=== PATIENT | female | born 1965 | race Caucasian/White ===

== ENCOUNTER 2021-12-30 09:53 | Emergency (ER) | payer OTHER, MEDICAID, SELFPAY ==
[2021-12-30] VITALS (15 sets, daily range): BP systolic 93–126; BP diastolic 74–96; PULSE 79–94; RESP 14–24; O2SAT 84–100
--- NOTE | ~2021-12-30 | XR_ITS ---
XR chest 2V DATE: 12/30/2021 10:14 INDICATION: Chest tightness TECHNIQUE: PA and lateral views COMPARISON: None FINDINGS: Normal heart size. No hilar or mediastinal enlargement. No pulmonary infiltrate or consolid ation, pleural effusion or pulmonary vascular congestion or pneumothorax. Status post cholecystectomy. Included skeletal structures are unremarkable. IMPRESSION: No active cardiopulmonary disease Reviewed, dictated and finalized at location A.
--- NOTE | ~2021-12-30 | CT_ITS ---
EXAMINATION: CTA chest PE protocol DATE: 12/30/2021 10:53 INDICATION: Shortness of breath. Chest pain. TECHNIQUE: Computed tomography angiography (CTA) of the chest was performed with 100 mL Omnipaque-350 intravenous contrast timed to evaluate the pulmonary arteries. Coronal maximum intensity projection 3D-reconstructions were created by the technologist. Automated exposure control and iterative reconst ruction technique were employed. The dose-length product was 334.48 mGy-cm. COMPARISON: Chest 2 views 12/30/2021 FINDINGS: There is mild emphysema. There is mild scarring at the lung apices. There is mild atelectas is bilaterally. No pleural effusion. The heart size is normal. No pericardial effusion. There are esperanza nges of cholecystectomy. There are small pulmonary emboli in right lower lobe. There is mild thoracic spondylosis. IMPRESSION: 1. Small pulmonary emboli in right lower lobe. 2. Mild emphysema. Reviewed, dictated and finalized at location B.
--- NOTE | 2021-12-30 09:56 | ECG_ITS ---
Measurements Intervals [place] Rate: 88 P: 61 [place]: 181 QRS: -5 QRSD: 97 T: 47 QT: 369 QTc: 448 Interpretive Statements SINUS RHYTHM CANNOT RULE OUT INFERIOR MYOCARDIAL INFARCTION , PROBABLY OLD [35 ms Q WAVE IN II/aVF] ABNORMAL ECG NO PREVIOUS ECG AVAILABLE FOR COMPARISON Electronically Signed On 12-30-2021 10:34:28 CDT by Prabhjot Luis M.D.
[2021-12-30 10:14] LABS: Basophils Absolute Auto 0.1 K/mm3 (0.0-0.1); Basophils Percent Auto 0.7 % (0.2-1.2); Eosinophils Absolute Auto 0.2 K/mm3 (0-0.3); Eosinophils Percent Auto 2.2 % (0-4.4); Hematocrit 40.4 % (37.0-47.0); Hemoglobin 13.3 g/dL (12.0-15.0); Immature Granulocyte Absolute 0.05 K/mm3 (0.00-0.031); Immature Granulocyte Percent A 0.5 % (0-0.5); Lymphocytes Absolute Auto 2.97 K/mm3 (0.9-3.2); Mean Corpuscular HGB Conc 32.9 g/dl (32-36); Mean Corpuscular Hemoglobin 30.4 pg (26-34); Mean Corpuscular Volume 92.4 fl (80-100); Mean Platelet Volume 9.8 fl (7.4-10.4); Monocytes Absolute Auto 0.9 K/mm3 (0.1-0.6); Monocytes Percent Auto 9.1 % (2.6-8.5); Neutrophils Percent Auto 58.5 % (45.5-73.1); Platelet Count Result 361 k/mm3 (150-375); Red Blood Count 4.37 M/mm3 (4.2-5.4); Red Cell Distribution Width 13.4 % (11.5-14.5); White Blood Count 10.3 K/mm3 (4.5-10.0)
[2021-12-30] MEDS: ASPIRIN 81 MG CHEWABLE TABLET 324 MG PO (10:16)
--- NOTE | 2021-12-30 10:16 | ED.CHESTPAIN ---
HPI - Chest Pain General Chief Complaint: Chest Pain Stated Complaint: LLE pain, chest pain, cough Time Seen by Provider: 12/30/21 10:02 Source: patient History of Present Illness HPI narrative: Patient presents with chest pain. Pain originally started around 730 this morning when not improved so she came to the ER for evaluation. Her pain is sharp, constant, worse with deep inspiration, no radiation. It is associated with shortness of breath denies any diaphoresis nausea or vomiting. Reports prior history of cardiac stent denies any recent hospitalizations or surgeries denies prior history of blood clots. Patient reports she struck her left ankle on a nail last night with some redness and edema to the area she was unsure if that is related to chest pain. Related Data Allergies Allergy/AdvReac Type Severity Reaction Status Date / Time Sulfa (Sulfonamide Allergy Nausea and Verified 12/30/21 10:06 Antibiotics) Vomiting Review of Systems Review of Systems: CONSTITUTIONAL: Denies fever, chills, or sweats. EYES: Denies visual changes, redness, or discharge. ENT: Denies rhinorrhea, congestion, sore throat, or otalgia. CARDIOVASCULAR: Denies palpitations, or edema. RESPIRATORY: Reports cough and shortness of breath GASTROINTESTINAL: Denies abdominal pain, nausea, vomiting, or diarrhea. GENITOURINARY: Denies dysuria or hematuria. SKIN: Denies rash or itching. MUSCULOSKELETAL: Denies back pain, or myalgia. NEUROLOGIC: Denies headache, numbness, dizziness, or weakness. PSYCHIATRIC: Denies anxiety or depression. All systems reviewed & are unremarkable except as noted in HPI and below Exam Narrative: GENERAL: Well-appearing, well-nourished, and in no acute distress. HEAD: Normocephalic, atraumatic. EYES: PERRLA and EOMI. ENT: Nares clear, no rhinorrhea or epistaxis. Mucous membranes moist. NECK: Supple. No masses. No JVD CHEST: Clear to auscultation. No respiratory distress. No wheezes rales or rhonchi HEART: Regular rate and rhythm. No murmur heard. Normal peripheral pulses. ABDOMEN: Soft, nontender, nondistended, normal active bowel sounds. EXTREMITIES: Normal range of motion. Scant symmetric edema in the bilateral lower extremities mild erythema noted to the posterior ankle no open or draining wounds no focal tenderness or warmth SKIN: Warm, dry, no rash. NEURO: No focal deficits. Alert and oriented x3. PSYCH: Normal mood and affect. Course Reevaluation(s) Reevaluation #1: Patient resting comfortably results reviewed with patient. Patient is comfortable with the outpatient plan. Patient is low risk by PESI is a candidate for outpatient anticoagulation. Discussed with her primary care doctor who will assist with close outpatient follow-up. Date: 12/30/21 Time: 11:37 Vital Signs Vital signs: Vital Signs Pulse Rate 88 12/30/21 09:58 Respiratory Rate 16 12/30/21 09:58 Blood Pressure 126/96 H 12/30/21 09:58 Pulse Oximetry 100 12/30/21 09:58 Oxygen Delivery Room Air 12/30/21 09:58 Pulse Rate 82 12/30/21 11:46 Respiratory Rate 20 12/30/21 11:46 Blood Pressure 110/74 12/30/21 11:05 Pulse Oximetry 100 12/30/21 11:46 Oxygen Delivery Room Air 12/30/21 09:58 MDM - Chest Pain MDM Narrative Medical decision making narrative: H&P as above, vss, pt looks clinically well, exam with clear lungs, labs with elevated dimer, img CT showing PEs, additional labs/img considered, symptomatic relief available as needed, on reevaluation pt continues to looks clinically well. PEs. Patient is low risk by PESI and is appropriate for outpatient anticoagulation. Patient is comfortable with the outpatient plan. I reached out to her primary care doctor who will assist with close outpatient follow-up. dns heart strain, pneumothorax, infarct, dissection plan to tx/monitor as op w/ pcm f/u findings/plan discussed with pt, pt agree/comfortable with plan, return precautions given Lab Data Result diagrams:
[2021-12-30 10:19] LABS: Alanine Aminotransferase 28 U/L (6-35); Albumin Level 4.2 g/dL (3.5-5.1); Alkaline Phosphatase 96 U/L (38-126); Anion Gap 7 mmol/L (8-16); Aspartate Amino Transferase 30 U/L (14-36); Bilirubin,Total 0.2 mg/dL (0.2-1.3); Blood Urea Nitrogen 21 mg/dL (7-17); Calcium 9.3 mg/dL (8.4-10.2); Carbon Dioxide 30 mmol/L (22-30); Chloride 103 mmol/L (98-107); Estimated CRCL calculation 81 ml/min; Estimated Glomerular Filt Rate > 60; Glucose 97 mg/dL (65-110); Lipase 182 U/L (23-300); Sodium 140 mmol/L (137-145)
[2021-12-30 10:31] LABS: Troponin I < 0.012 ng/mL (0.000-0.034)
[2021-12-30 10:34] LABS: INR 0.9; Prothrombin Time 12.1 Seconds (11.1-14.7)
== END 2021-12-30 12:40 | disposition home or self-care (01) ==
PROVIDERS: Emergency Provider Emergency Medicine; PCP Family Medicine
DX: I26.94 Multiple subsegmental thrombotic pulmonary emboli without acute cor pulmonale (principal); R07.9 Chest pain, unspecified
CPT/HCPCS: 36415; 71046; 71275; 80053; 83690; 84484; 85025; 85380; 85610; 85730; 93005; 99284; A9270; Q9967

== ENCOUNTER 2022-03-17 11:56 | Emergency (ER) | payer OTHER, SELFPAY ==
--- NOTE | ~2022-03-17 | XR_ITS ---
EXAMINATION: XR chest 2V DATE: 03/17/2022 12:29 INDICATION: Chest pain and shortness of breath TECHNIQUE: PA and lateral views of the chest were obtained. COMPARISON: Chest radiograph and CT dated 12/30/2021 FINDINGS: The lungs remain clear with no focal airspace opacities, pulmonary edema, pleural effusion or pneumot horax. The cardiomediastinal silhouette is normal. Coronary artery stenting. I'll to moderate thoraci c spondylosis. Cholecystectomy clips in the upper abdomen. IMPRESSION: 1. No acute cardiopulmonary disease. Reviewed, dictated and finalized at location A.
--- NOTE | 2022-03-17 12:00 | ECG_ITS ---
Measurements Intervals [place] Rate: 71 P: 52 [place]: 197 QRS: 25 QRSD: 88 T: 52 QT: 391 QTc: 427 Interpretive Statements SINUS RHYTHM COMPARED TO ECG 12/30/2021 10:03:30 NO SIGNIFICANT CHANGES Electronically Signed On 03-17-2022 19:59:47 CDT by Lisa Carmichael M.D.
[2022-03-17 12:10] VITALS: BP 124/71; PULSE 73; RESP 16; TEMP 36.5; O2SAT 99
[2022-03-17 12:14] LABS: Basophils Absolute Auto 0.1 K/mm3 (0.0-0.1); Basophils Percent Auto 0.7 % (0.2-1.2); Eosinophils Absolute Auto 0.2 K/mm3 (0-0.3); Eosinophils Percent Auto 1.9 % (0-4.4); Hematocrit 38.6 % (37.0-47.0); Hemoglobin 12.6 g/dL (12.0-15.0); Immature Granulocyte Absolute 0.04 K/mm3 (0.00-0.031); Immature Granulocyte Percent A 0.4 % (0-0.5); Lymphocytes Absolute Auto 3.59 K/mm3 (0.9-3.2); Lymphocytes Percent Auto 35.1 % (18.3-44.2); Mean Corpuscular HGB Conc 32.6 g/dl (32-36); Mean Corpuscular Hemoglobin 29.9 pg (26-34); Mean Corpuscular Volume 91.7 fl (80-100); Mean Platelet Volume 10.1 fl (7.4-10.4); Monocytes Absolute Auto 0.9 K/mm3 (0.1-0.6); Monocytes Percent Auto 9.1 % (2.6-8.5); Neutrophils Absolute Auto 5.4 K/mm3 (1.3-6.7); Neutrophils Percent Auto 52.8 % (45.5-73.1); Platelet Count Result 354 k/mm3 (150-375); Red Blood Count 4.21 M/mm3 (4.2-5.4); Red Cell Distribution Width 13.5 % (11.5-14.5); White Blood Count 10.2 K/mm3 (4.5-10.0)
[2022-03-17 12:25] LABS: Alanine Aminotransferase 45 U/L (6-35); Albumin Level 4.3 g/dL (3.5-5.1); Alkaline Phosphatase 94 U/L (38-126); Anion Gap 1 mmol/L (8-16); Aspartate Amino Transferase 40 U/L (14-36); Bilirubin,Total 0.3 mg/dL (0.2-1.3); Blood Urea Nitrogen 17 mg/dL (7-17); Calcium 9.2 mg/dL (8.4-10.2); Carbon Dioxide 30 mmol/L (22-30); Chloride 101 mmol/L (98-107); Estimated CRCL calculation 77 ml/min; Estimated Glomerular Filt Rate > 60; Glucose 98 mg/dL (65-110); Lipase 224 U/L (23-300); Sodium 132 mmol/L (137-145)
[2022-03-17 12:31] LABS: INR 1.5; Partial Thromboplastin Time 44.9 SECONDS (22.3-36.8); Prothrombin Time 17.1 Seconds (11.1-14.7)
[2022-03-17 12:35] LABS: Troponin I < 0.012 ng/mL (0.000-0.034)
== END 2022-03-17 15:00 | disposition left against medical advice (07) ==
LOC: ANHED 15:10
PROVIDERS: Emergency Provider Emergency Medicine
DX: R07.9 Chest pain, unspecified (principal)
CPT/HCPCS: 36415; 71046; 80053; 83690; 84484; 85025; 85610; 85730; 93005; 99199

== ENCOUNTER 2022-11-08 01:07 | Day surgery (SDC) | payer BC, SELFPAY ==
[2022-11-01 10:22] VITALS: BMI 26.6
--- NOTE | 2022-11-06 10:40 | PM.HPGS ---
History of Present Illness History of Present Illness Consent: Risks, benefits, and alternatives have been discussed and questions answered. Patient agrees to proceed with procedure. Chief complaint: neoplasm screening Narrative: Galileo Oakes is a 57 year old female who was referred for colon cancer screening. this is her 1st colonoscopy. Review of Systems Review of Systems: All systems reviewed & are unremarkable except as noted in HPI and below PMFSH Past Medical History Medical History CAD (coronary artery disease) DVT (deep venous thrombosis) History of pulmonary embolism Hyperlipidemia Hypertension Surgical History Surgical History History of coronary artery stent placement x1, 07/2020 History of tubal ligation Social History Social History Years smoked: 30 Smoking status: Current every day smoker Tobacco type: cigarettes Alcohol intake: current Substance use: never Substance use type: does not use Living arrangements: with family Spiritual care concerns: No Meds Home Medications and Allergies Home Medications Medication Instructions Recorded Confirmed Type atorvastatin 40 mg tablet 40 mg PO DAILY 03/17/22 11/08/22 History furosemide 20 mg tablet 20 mg PO DAILY 03/17/22 11/08/22 History metoprolol tartrate 25 mg tablet 12.5 mg PO BID 03/17/22 11/08/22 History aspirin 81 mg tablet,delayed 81 mg PO DAILY 11/01/22 11/08/22 History release rivaroxaban 20 mg tablet (Xarelto) 20 mg PO DAILY 11/01/22 11/08/22 History Allergies Allergy/AdvReac Type Severity Reaction Status Date / Time Sulfa (Sulfonamide Allergy Severe Nausea and Verified 11/08/22 08:24 Antibiotics) Vomiting Exam Const: General: alert Orientation/consciousness: patient oriented x3 Resp: Auscultation: clear to auscultation bilaterally Cardio: Rhythm: regular rhythm GI: GI Palp: Yes Soft to palpation and No Tenderness to palpation present (GI) Neuro: General: patient oriented x3 Assessment and Plan Assessment and plan (1) Colon cancer screening: Code(s): Z12.11 - Encounter for screening for malignant neoplasm of colon Status: Acute Assessment and Plan: Colonoscopy with possible biopsy or polypectomy or cautery or injection of substances.
--- NOTE | 2022-11-08 07:13 | P.PNAN_ITS ---
Anes - Initial Pre Proc Eval Procedure: Operation Date: 11/08/22 09:45 Proposed Procedures p Screening Colonoscopy - Jacobo Alba MD Date/Time: 11/08/22 07:13 Surgeon: Jacobo Alba MD Pre Op Diagnosis: neoplasm screening Patient Data Age: 57 Gender: F Height: 1.7 m Weight: 77 kg Allergies Allergy/AdvReac Type Severity Reaction Status Date / Time Sulfa (Sulfonamide Allergy Severe Nausea and Verified 11/08/22 08:24 Antibiotics) Vomiting Home Medications Medication Instructions Recorded Confirmed Type atorvastatin 40 mg tablet 40 mg PO DAILY 03/17/22 11/08/22 History furosemide 20 mg tablet 20 mg PO DAILY 03/17/22 11/08/22 History metoprolol tartrate 25 mg tablet 12.5 mg PO BID 03/17/22 11/08/22 History aspirin 81 mg tablet,delayed 81 mg PO DAILY 11/01/22 11/08/22 History release rivaroxaban 20 mg tablet (Xarelto) 20 mg PO DAILY 11/01/22 11/08/22 History Patient hx anesthesia problems: none Family hx anesthesia problems: none Results Review: All pre-operative results and documents have been reviewed as part of the pre- operative evaluation. [facility] Past Medical History Medical History (Updated 11/08/22 @ 07:15 by Guanakito Baxter DO) CAD (coronary artery disease) DVT (deep venous thrombosis) History of pulmonary embolism Hyperlipidemia Hypertension Surgical History Surgical History (Updated 11/08/22 @ 07:15 by Guanakito Baxter DO) History of coronary artery stent placement x1, 07/2020 History of tubal ligation Social History Social History Years smoked: 30 Smoking status: Current every day smoker Tobacco type: cigarettes Alcohol intake: current Substance use: never Substance use type: does not use Living arrangements: with family Spiritual care concerns: No Anes - Eval Final PreProcedure Day of Procedure 11/08/22 07:13 Patient weight: overweight Heart: regular rate and rhythm Lungs: clear to auscultation Airway: Mallampati scale class II Neurological: alert and oriented Last oral intake: >/= 8 hours ASA classification: III Emergent: no Anesthetic plan: proceed Anesthesia type and monitoring: general GIVS and standard monitoring Results Review: All pre-operative results and documents have been reviewed as part of the pre- operative evaluation. Informed Consent: The patient's anesthetic plan and its attendant risks and benefits were discussed with the patient/family/POA. Questions were solicited and answers provided to the satisfaction of the patient/family/POA.
[2022-11-08 08:26] VITALS: BP 134/87; PULSE 87; RESP 16; TEMP 36.1; O2SAT 100
[2022-11-08] MEDS: LACTATED RINGERS 1,000 ML 150 ML IV CONT (08:39)
[2022-11-08 09:53] VITALS: BP 116/79; PULSE 88; RESP 21; O2SAT 100
[2022-11-08 10:03] VITALS: BP 124/88; PULSE 83; RESP 27; O2SAT 100
[2022-11-08 10:13] VITALS: BP 111/73; PULSE 82; RESP 25; O2SAT 100
== END 2022-11-08 10:22 | disposition home or self-care (01) ==
PROVIDERS: PCP Family Medicine; Visit Provider Internal Medicine Gastroenterology
PROC: 0DJD8ZZ Inspection of Lower Intestinal Tract, Via Natural or Artificial Opening Endoscopic (ICD-10-PCS; CPT 45378; principal; 2022-11-08 09:45)
DX: Z12.11 Encounter for screening for malignant neoplasm of colon (principal); D12.2 Benign neoplasm of ascending colon; D12.4 Benign neoplasm of descending colon; K63.5 Polyp of colon; K62.1 Rectal polyp; I10 Essential (primary) hypertension; I25.10 Atherosclerotic heart disease of native coronary artery without angina pectoris; E78.5 Hyperlipidemia, unspecified; Z86.711 Personal history of pulmonary embolism; Z86.718 Personal history of other venous thrombosis and embolism; Z79.01 Long term (current) use of anticoagulants; Z95.5 Presence of coronary angioplasty implant and graft; F17.210 Nicotine dependence, cigarettes, uncomplicated
CPT/HCPCS: 45385; 45380; 88305; J2704; J7120

== ENCOUNTER 2024-10-18 10:42 | Outpatient (CLI) | payer OTHER, SELFPAY ==
--- NOTE | ~2024-10-18 | DEXA_ITS ---
Bone Density Report Name: RACHANA LING Age: 59 Sex: Female Ethnicity: White Date of : 1965 Indication: postmenopausal; screening for osteoporosis; Referring Provider: DWAYNE GRACIA Study: Bone densitometry was performed. Exam Date: October 18, 2024 Accession number: [id number] Bone Density: Region BMD T-score Z-score Classification AP Spine(L1-L4) 1.167 1.1 2.3 Normal Femoral Neck (Left) 1.016 1.5 2.7 Normal Total Hip (Left) 1.147 1.7 2.5 Normal Femoral Neck (Right) 0.982 1.2 2.4 Normal Total Hip (Right) 1.122 1.5 2.3 Normal Total Hip Mean 1.134 1.6 2.4 Normal World Health Organization criteria for BMD impression classify patients as: Normal (T-score at or above -1.0), Osteopenia (T-score between -1.0 and -2.5), or Osteoporosis (T-score at or below -2.5). 10-year Fracture Risk: FRAX not reported because: All T-scores for Spine Total, Hip Total, Femoral Neck at or above -1.0 Clinical Information Provided by Patient: Smokes Patient maximum height was 67 Menopause Age: 55 No regular weight bearing exercise Drinks caffeinated beverages Onset of menses at age 17 Number of children 1 Impression: The patient has normal bone mass. The patient has risk factors, including: smoking. Discussion: LOW RISK OF FRACTURE; BONE DENSITY IS WELL ABOVE THE MINIMUM DESIRABLE LEVEL AND ABOVE AVERAGE FOR AGE AND SEX AT ALL SKELETAL SITES TESTED. This person's bone density is above expected limits for age and sex. This is rarely clinically significant, but should be pursued if there are significant musculoskeletal complaints. The patient should follow a healthful lifestyle (good nutrition with adequate calcium and vitamin D, and appropriate weight-bearing exercise). Follow-Up: Consider repeating this study in 5 years or sooner if there is some new clinical indication. Reported by: NOE on 10/18/2024 11:20:00 AM. Reviewed, dictated and finalized at location [facility]
--- OUTSIDE RECORDS SUMMARY | 2024-10-18 11:30 | XMS_ITS | Clinical Summary ---
Author Organization [facility] Address [address] [place] [address] Phone Care Team Providers Care Core Stripper Name Role Phone Tess Heard MD Primary Care Provider [phone] Allergies Active Allergy Reactions Criticality Noted Date Comments Sulfa Antibiotics Nausea,Vomiting,Othe r (see Comments) 08/24/2022 Stomach cramping Medications furosemide (LASIX) 20 MG Tablet furosemide 20 mg tablet TAKE 1 TABLET BY MOUTH EVERY DAY Active metoprolol tartrate (LOPRESSOR) 25 MG Tablet metoprolol tartrate 25 mg tablet TAKE 1/2 TABLET BY MOUTH TWICE DAILY 0 Active atorvastatin (LIPITOR) 40 MG Tablet atorvastatin 40 mg tablet TAKE 1 TABLET BY MOUTH EVERY DAY 0 Active rivaroxaban (XARELTO) 15 MG Tablet Xarelto 15 mg tablet TAKE 1 TABLET BY MOUTH EVERY DAY Active aspirin EC 81 MG Tablet Delayed Response aspirin 81 mg tablet,delayed release TAKE 1 TABLET BY MOUTH EVERY DAY 0 Active Active Problems No known active problems Family History Medical History Relation Name Comments Diabetes Father Heart Attack Father x5 Hypertension Father Other-comment Father Sepsis Cancer Maternal Grandfather possibl e colon ca Heart Disease Maternal Grandfather Diabetes Mother Leukemia/Lymphoma Mother Colon Cancer Paternal Aunt Diabetes Paternal Grandmother Stroke Paternal Grandmother Other-comment Sister PE Relation Name Status Comments Father Maternal Grandfather Mother Alive Paternal Aunt Paternal Grandmother Sister Social History Tobacco Use Types Packs/Day Years Used Date Smoking Tobacco: Every Day Cigarettes 0.3 44 Smokeless Tobacco: Never Tobacco Cessation:Ready to Q uit: No; Counseling Given: No Alcohol Use Standard Drinks/Week Comments Yes 0 (1 standard drink = 0.6 oz pur e alcohol) 1-2 drinks a week Sexually Active Control Partners Comments Yes Comments Unknown Sex and Gender Information Value Date Recorded Sex Assigned at Not on file Legal Sex Female 2:47 PM [employer]IOR COMPLIANCE [employer]IC[employer] Gender Identity Not on file Sexual Orientation Not on file Last Filed Vital Signs Vital Sign Reading Time Taken Comments Blood Pressure 122/76 08/24/2022 2:03 PM S[employer]IOR COMPLIANCE OFFICER Pulse 84 08/24/2022 2:03 PM S[employer]IOR COMPLIANCE OFFICER Temperature 36.6 C (97.9 F) 08/24/2022 2:03 PM SENIOR COMPLIANCE OFFICER Respiratory Rate 18 08/24/2022 2:03 PM SENIOR COMPLIANCE OFFICER Oxygen Saturation 97% 08/24/2022 2:03 PM SENIOR COMPLIANCE OFFICER Inhaled Oxygen Concentration - - Weight 84.3 kg (185 lb 14.4 oz) 08/24/2022 2:03 PM SENIOR COMPLIANCE OFFICER Height 170.2 cm (5' 7 ) 08/24/2022 2:03 PM SENIOR COMPLIANCE OFFICER Body Mass Index 29.12 08/24/2022 2:03 PM SENIOR COMPLIANCE OFFICER Plan of Treatment Health Maintenance Due Date Last Done Comments Hepatitis C Virus (HCV) Screening 1965 TdaP Immunization 1967 Hepatitis B Immunization (1 of 3 - 19+ 3-dose series) 1986 Colonoscopy 2012 Colorectal Cancer Screening 2012 Cologuard 2017 Immunochemical Fecal Occult Blood 2017 Pneumococcal Immunization (5 0+ years) (1 of 1 - PCV) 2017 Zoster Immunization (1 of 2) 2017 Influenza Immunization (#1) 2024 08/05/2019 SARS-COV-2 Immunization ( season) 2024 08/29/2021, 03/22/2021, 09/28/2020 Respiratory Syncytial Virus (RSV) Immunization (Adult) (1 - 1-dose 75+ series) 2042 Meningococcal Immunization (ACWY) Aged Out No longer eligible b ased on patient's age to complete this topic Rotavirus Immunization Aged Out No lo nger eligible based on patient's age to complete this topic Insurance MEDICAID [place] [facility] Care Teams Core Stripper Relationship Specialty Start Date End Date Tess Heard MD [facility] [place] [address] PCP - General Deblocker 08/24/22
--- OUTSIDE RECORDS SUMMARY | 2024-10-18 11:30 | XMS_ITS | CONTINUITY OF CARE DOCUMENT ---
Author Name isidro fleix Address Unknown Organization [facility] Address [id number] [place] [address] [address] [place] [address] Phone [phone] Care Team Providers Care Reforestation Worker Name Role Phone Jeffrey QURESHI, Mari Dunn Unavailable ASHLYN QURESHI, RUNDA Unavailable [phone] ASHLYN QURESHI, RUNDA Unavailable PROBLEMS Condition Status Date Provider Notes Cardiology examination active Louise little MD CAD- s/p inferior wall TX, FUNMI to L circ. 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 Louise Casey MD Hyperlipidemia active Louise Casey MD Tobacco abuse active Louise Casey MD Hyperglycemia active Louise Casey MD Pulmonary embolism active Mari Murphy MD Shortness of breath active Mari Murphy MD HTN essential active Mari Murphy MD Aortic regurgitation active Mari holland MD ENCOUNTERS Date Type Provider Location Encounter Diag nosis - In-person encounter Office Visit Mari Murphy MD [facility] Aortic regurgitation - In-person encounter Office Visit Mari Murphy MD [facility] - In-person encounter Office Visit Mari Murphy MD [facility] - In-person encounter Office Visit Mari Murphy MD [facility] - In-person encounter Office Visit Mari Murphy MD [facility] Pulmonary embolismShortness of breathHTN essential - In-person encounter Office Visit Mari Murphy MD [facility] - In-person encounter Office Visit Mari Murphy MD [facility] - In-person encounter Office Visit Louise Casey MD [facility] Hyperglycemia - In-person encounter Office Visit Louise Casey MD [facility] Cardiology examinationCAD- s/p inferior wall TX, FUNMI to L circ.MRSA carrierHyperlipidemiaTobacco abuse VITAL SIGNS Date Observation Value Provider Body Mass Index (Ratio) 29.13 kg/m2 Franck Zapien blood pressure, cuff size regular Ke rri Yue blood pressure, diastolic 80 mm[Hg] Miguel rri Stephanie blood pressure, systolic 122 mm[Hg] Elva ri Stephanie oxygen saturation, oximetry 95 % Leigh Brown respiratory rate E&M 12 /min Leigh ferguson pulse rate 86 /min Leigh Pires [facility] weight E&M 186 [lb_av] Leigh Pires [facility] height E&M 67 [in_i] Leigh Pires [facility] Body Mass Index (Ratio) 28.82 kg/m2 Herbert Murphy MD blood pressure, diastolic 78 mm[Hg] An ashwini Shaw blood pressure, systolic 125 mm[Hg] Virgen Shaw pulse rate 81 /min Olga Lidia Shaw oxygen saturation, oximetry 98 % Olga Lidiaskyler Shaw weight E&M 184 [lb_av] Olag Lidiaskyler Shaw blood pressure, cuff size large An ya Colin height E&M 67 [in_i] Olga Lidiaskyler Shaw Body Mass Index (Ratio) 29.13 kg/m2 Herbert Murphy MD blood pressure, diastolic 86 mm[Hg] St acy Chuck blood pressure, systolic 114 mm[Hg] Sta yane Woods oxygen saturation, oximetry 98 % Valentina Woods pulse rate 97 /min Valentinayane Woods respiratory rate E&M 18 /min Valentina villagomez weight E&M 186 [lb_av] Valentinayane Woods height E&M 67 [in_i] Valentina Woods Body Mass Index (Ratio) 28.82 kg/m2 Herbert Murphy MD blood pressure, diastolic 83 mm[Hg] St acdaniele Woods blood pressure, systolic 136 mm[Hg] Ranulfo Woods oxygen saturation, oximetry 98 % Valentina Woods pulse rate 91 /min Valentina Woods respiratory rate E&M 18 /min Valentina D hernando weight E&M 184 [lb_av] Valentinayane Woods height E&M 67 [in_i] Valentinayane Woods Body Mass Index (Ratio) 28.66 kg/m2 Herbert Murphy MD blood pressure, diastolic 83 mm[Hg] St acy Chuck blood pressure, systolic 141 mm[Hg] Sta cy Chuck oxygen saturation, oximetry 99 % Valentina Woods pulse rate 85 /min Valentina Woods respiratory rate E&M 16 /min Valentina D hernando weight E&M 183 [lb_av] Valentina Chuck height E&M 67 [in_i] Valentina Chuck blood pressure, cuff size regular Sa ra Gaytan height E&M 67 [in_i] Letty Gaytan Body Mass Index (Ratio) 27.88 kg/m2 Herbert Murphy MD oxygen saturation, oximetry 98 % Kalpanaleigh Chavis pulse rate 98 /min Kalpana Campbel l blood pressure, cuff size regular Cy ntdyanaa Chavis blood pressure, diastolic 80 mm[Hg] Cy nthia Chavis blood pressure, systolic 128 mm[Hg] Adilene leigh Chavis respiratory rate E&M 16 /min Kalpana Chavis weight E&M 178 [lb_av] Kalpana Campbel l height E&M 67 [in_i] Kalpana Campbel l Body Mass Index (Ratio) 27.41 kg/m2 Emily Casey MD blood pressure, diastolic 76 mm[Hg] Cy nthany Chavis blood pressure, systolic 121 mm[Hg] Adilene leigh Chavis blood pressure, cuff size regular Cy ntdyanaa Chavis pulse rate 83 /min Kalpana Campbel l respiratory rate E&M 16 /min Kalpana Chavis oxygen saturation, oximetry 99 % Kalpana Chavis weight E&M 175 [lb_av] Kalpana Campbel l height E&M 67 [in_i] Kalpana Campbel l Body Mass Index (Ratio) 27.41 kg/m2 Emily Casey MD blood pressure, cuff size regular Bryan Jones RN blood pressure, diastolic 80 mm[Hg] Bryan Jones RN blood pressure, systolic 116 mm[Hg] Ky Jones RN oxygen saturation, oximetry 98 % Ky Jones RN respiratory rate E&M 18 /min Ky Ronak santanatiesha RN pulse rate 92 /min Ky Jones RN weight E&M 175 [lb_av] Ky Jones RN height E&M 67 [in_i] Ky Jones RN ALLERGIES Allergy Name Onset Date Reaction Criticality Status SULFASALAZINE Low Criticality active RESULTS Date Observation Value Provider Reference Range Interpretation Location 7 Protein C, Functional 127 % [facility] 73-180 7 coagulation factor V activity 131 % [facility] 70-150 7 antithrombin, functional 173 % [facility] 75-135 High 7 Protein S, Functional 121 % [facility] 63-140 6 D-dimer quantitative mcg/mL 0.31 MG/L FEU [facility] 0.00-0.49 6 lipoprotein, beta, serum, point, quantitative, calculated 100 mg/dL [facility] 0-99 High 6 HDL cholesterol, serum 53 mg/dL [facility] >39 6 triglyceride, serum, random 161 mg/dL [facility] 0-149 High 6 cholesterol, serum 181 mg/dL [facility] 159-355 2807/10/2 6 alanine aminotransferase (SGPT), serum 25 1/L [facility] 0-32 6 aspartate aminotransferase (SGOT), serum 21 1/L [facility] 0-40 6 alkaline phosphatase, serum 101 1/L [facility] 44-121 6 bilirubin, serum, total 0.2 mg/dL [facility] 0.0-1.2 6 albumin/globulin ratio, serum 1.4 [facility] 1.2-2.2 6 globulin, serum 2.7 [facility] 1.5-4.5 6 albumin, serum 3.8 g/dL [facility] 3.8-4.9 6 protein, total, serum 6.5 g/dL [facility] 6.0-8.5 6 calcium, serum 9.6 mg/dL [facility] 8.7-10.2 6 carbon dioxide, venous blood 26 mmol/L [facility] 20-29 6 chloride, serum 104 mmol/L [facility] 96-106 6 potassium, serum 4.3 mmol/L [facility] 3.5-5.2 6 sodium, serum 142 mmol/L [facility] 920-770 6907/10/2 6 urea nitrogen/creatinine ratio, serum 21 [facility] 9-23 6 creatinine, serum 0.85 mg/dL [facility] 0.57-1.00 6 urea nitrogen, blood 18 mg/dL [facility] 6-24 6 blood glucose, random 97 mg/dL [facility] 70-99 hemoglobin A1C, blood, as % of total hemoglobin 6.0 % [facility] 4.8-5.6 High 6 lipoprotein, beta, serum, point, quantitative, calculated 106 mg/dL [facility] 0-99 High very low density lipoproteins 27 mg/dL [facility] 5-40 6 HDL cholesterol, serum 61 mg/dL [facility] triglyceride, serum, random 135 mg/dL [facility] 0-149 cholesterol, serum 194 mg/dL [facility] 625-552 6614/08/0 6 platelet count 344 X10E3/UL [facility] 937-220 8724/08/0 6 red blood cell distribution width 12.6 % [facility] 11.7-15.4 mean corpuscular hemoglobin concentration, RBC 33.9 G/DL [facility] 31.5-35.7 mean corpuscular hemoglobin, RBC 30.8 pg [facility] 26.6-33.0 mean corpuscular volume, RBC 91 fL [facility] 79-97 hematocrit, blood 38.3 % [facility] 34.0-46.6 2020/08/0 6 hemoglobin, blood 13.0 g/dL [facility] 11.1-15.9 6 erythrocyte (RBC) count 4.22 X10E6/UL [facility] 3.77-5.28 6 leukocyte count, blood 8.3 X10E3/UL [facility] 3.4-10.8 6 alanine aminotransferase (SGPT), serum 74 1/L [facility] 0-32 High 6 aspartate aminotransferase (SGOT), serum 34 1/L [facility] 0-40 6 alkaline phosphatase, serum 116 1/L [facility] 39-117 6 bilirubin, serum, total 0.4 mg/dL [facility] 0.0-1.2 6 albumin/globulin ratio, serum 1.7 [facility] 1.2-2.2 6 globulin, serum 2.4 [facility] 1.5-4.5 6 albumin, serum 4.1 g/dL [facility] 3.8-4.9 6 protein, total, serum 6.5 g/dL [facility] 6.0-8.5 6 calcium, serum 10.0 mg/dL [facility] 8.7-10.2 6 carbon dioxide, venous blood 28 mmol/L [facility] 20-29 6 chloride, serum 103 mmol/L [facility] 96-106 6 potassium, serum 5.3 mmol/L [facility] 3.5-5.2 High 6 sodium, serum 141 mmol/L [facility] 960-571 2880/08/0 6 urea nitrogen/creatinine ratio, serum 17 [facility] 9-23 6 eGFR if 89 mL/min/{1 .73_m2} [facility] >59 6 eGFR if not 77 mL/min/{1 .73_m2} [facility] >59 6 creatinine, serum 0.87 mg/dL [facility] 0.57-1.00 6 urea nitrogen, blood 15 mg/dL [facility] 6-24 6 blood glucose, random 93 mg/dL [facility] 65-99 HISTORY OF MEDICATION USE Medication Status Instructions Dates Provider Indications Com ments atorvastatin 40 mg tablet active Take 1 tablet by mouth every night at bedtime Leigh Brown Xarelto 20 mg tablet active TAKE 1 TABLET BY MOUTH ONCE DAILY AT NIGHT Sundar Xarelto 20 mg tablet completed TAKE 1 TABLET BY MOUTH ONCE A DAY - [facility] furosemide 20 mg tablet active Mari Murphy MD Xarelto 20 mg tablet completed Take 1 Tablet (20 mg) by mouth nightly. - Mari Murphy MD aspirin 81 mg tablet,delayed release (DR/EC) active TAKE 1 TABLET BY MOUTH EVERY DAY [facility] metoprolol tartrate 25 mg tablet active TAKE 1/2 TABLET BY MOUTH TWICE DAILY [facility] atorvastatin 40 mg tablet completed TAKE 1 TABLET BY MOUTH AT BEDTIME - Leigh Brown metoprolol tartrate 25 mg tablet completed 1/2 tab. twice daily - Juana Leonard Plavix 75 mg tablet completed 1 tablet by mouth once a day - Mari Murphy MD aspirin 81 mg tablet,delayed release (DR/EC) completed One Tab By Mouth Daily - Juana Leonard SOCIAL HISTORY Date Observation Value Provider smoking/tobacco cess ation, patient education and counseling yes Mari Murphy MD smoking status Current every day smoker S tacos Murphy MD social history reviewed E&M taylor clarke - no changes required Mari Murphy MD social history E&M Patient lorelei love smokes every day. Smoking History: P atient currently smokes every day. P atient has been counseled to quit. Mari Murphy MD smoking/tobacco cess ation, patient education and counseling yes Olga Lidia Shaw smoking status Current every day smoker Skyler Shaw social history E&M Patient curre ntly smokes every day. Smoking History: P atient currently smokes every day. P atient has been counseled to quit. Mari Murphy MD social history reviewed E&M revi ewed - no changes required Mari Murphy MD smoking/tobacco cess ation, patient education and counseling yes Valentina Woods smoking status Current every day smoker S luis Chuck social history E&M Patient curre ntly smokes every day. Smoking History: P atient currently smokes every day. P atient has been counseled to quit. Mari Murphy MD social history reviewed E&M revi ewed - no changes required Mari Murphy MD smoking/tobacco cess ation, patient education and counseling yes Valentina Woods smoking status Current every day smoker S sahradaniele Woods social history E&M Patient rustye ntly smokes every day. Smoking History: P atient currently smokes every day. P atient has been counseled to quit. Mari Murphy MD social history reviewed E&M revi ewed - no changes required Mari Murphy MD smoking/tobacco cess ation, patient education and counseling yes Valentina Woods smoking status Current every day smoker S luis Woods number of grandchildren Mari Murphy MD social history E&M Patient rustye ntly smokes every day. Smoking History: P atient currently smokes every day. P atient has been counseled to quit. Mari Murphy MD social history reviewed E&M revi ewed - no changes required Mari Murphy MD smoking/tobacco cess ation, patient education and counseling yes Kalpana Chavis smoking status Current every day smoker Pk Chavis social history E&M Patient lorelei love smokes every day. Smoking History: P atient currently smokes every day. P atient has been counseled to quit. Louise Casey MD social history reviewed E&M revi ewed - no changes required Louise Casey MD smoking/tobacco cess ation, patient education and counseling yes Kalpana Chavis smoking status Current every day smoker Pk danielelibandyanaskyler Partha number of grandchildren Louise Casey MD social history E&M Patient lorelei love smokes every day. Smoking History: P atient currently smokes every day. P atient has been counseled to quit. Louise Casey MD social history reviewed E&M revi ewed - no changes required Louise Casey MD smoking/tobacco cess ation, patient education and counseling yes Louise Casey MD smoking status Current every day smoker Kellen Jones RN FUNCTIONAL STATUS Date Observation Value Provider HRA, CV Assess/Plan, Angina (inactive) Management Plan continue current therapy Mari Murphy MD HRA, CV Assess/Plan, Angina (inactive) Management Plan continue current therapy Mari Murphy MD HRA, CV Assess/Plan, Angina (inactive) Management Plan continue current therapy Mari Murphy MD HRA, CV Assess/Plan, Angina (inactive) Management Plan continue current therapy Mari Murphy MD HRA, CV Assess/Plan, Angina (inactive) Management Plan continue current therapy Mari Murphy MD HRA, CV Assess/Plan, Angina (inactive) Management Plan continue current therapy Mari Murphy MD HRA, CV Assess/Plan, Angina (inactive) Management Plan continue current therapy Louise Casey MD INSURANCE PROVIDERS Payer name Policy type / Coverage type [place] [employer] party ID [facility] MEDICA[facility] (2) Medicaid [id number] ADVANCE DIRECTIVES Name Date DISCUSSED - NO DECISION MADE TREATMENT PLAN Date Name Performer [id number],S,T he Patient was reencouraged to stop smoking. Mari Murphy MD [id number],C, [age]-year-old female presents here with an inferior wall ST-elevation myocardial infarction was t ransferred here from [facility] where there quality control lab technician is closed for r evascularization. Remains on ASA/plavix Paragould catheter thrombectomy 3 . PTCA stenting of high-grade 100% ENRIQUE 0 flow thrombotic stenosis of the mid left circumflex reduced to 0% r esidual with implantation with 3.5 x 33mm Xience drug-eluting stent May 04, 2022 c ontinues on plavix and xarelto at present August 04, 2022 w ith bleeding risk, she needs low dose antiplatelt therpay with 81 of aspirin. Stop plavix and she is on xarelto Mari Murphy MD [id number],C, O n xarelto 20 mg for PE, started at [facility]. check DVT study. S oneal also had PE, Rordered xarellto [facility] prefe for her to be seen by a combat systems engineer since she had a sister who had a PE April 22, 2023 B ack on Xarelto Mari Murphy MD [id number],C, H er updated medication list for this problem includes: Furosemide 20 Mg Tablet (Furosemide) Aspirin 81 Mg Tablet,delayed Release (dr/ec) (Aspirin) ..... Take 1 tablet by mouth every day Metoprolol Tartrate 25 Mg Tablet (Metoprolol tartrate) ..... Take 1/2 tablet by mouth twice daily BP today: 125/78 P rior BP: 114/86 (01/21/2023) Labs Reviewed: C reat: 0.85 (05/12/2022) C hol: 181 (05/12/2022) HDL: 53 (05/12/2022) Mari Murphy MD [id number],S,[employer]. does not want patch Mari Murphy MD [id number],C, O n xarelto 20 mg for PE, started at [facility]. check DVT study. Tiesha no also had PE, Rordered xarellto [facility] prefe for her to be seen by a combat systems engineer since she had a sister who had a PE Mari Murphy MD [id number],C, [age]-year-old female presents here with an inferior wall ST-elevation myocardial infarction was t ransferred here from [facility] Room where there quality control lab technician is closed for r evascularization. Remains on ASA/plavix Paragould catheter thrombectomy 3 . PTCA stenting of high-grade 100% ENRIQUE 0 flow thrombotic stenosis of the mid left circumflex reduced to 0% r esidual with implantation with 3.5 x 33mm Xience drug-eluting stent May 04, 2022 c ontinues on plavix and xarelto at present August 04, 2022 w ith bleeding risk, she needs low dose antiplatelt therpay with 81 of aspirin. Stop plavix and she is on xarelto Mari Murphy MD [id number],C, H er updated medication list for this problem includes: Atorvastatin 40 Mg Tablet (Atorvastatin) ..... Take 1 tablet by mouth once a day Mari Murphy MD [id number],C, H er updated medication list for this problem includes: Aspirin 81 Mg Tablet,delayed Release (dr/ec) (Aspirin) ..... Take 1 tablet by mouth every day Metoprolol Tartrate 25 Mg Tablet (Metoprolol tartrate) ..... Take 1/2 tablet by mouth twice daily BP today: 114/86 P rior BP: 136/83 (08/04/2022) Labs Reviewed: C reat: 0.85 (05/12/2022) C hol: 181 (05/12/2022) HDL: 53 (05/12/2022) Mari Murphy MD [id number],B,s topped smokign down to 2 cig a week Mari Murphy MD [id number],S,E cho normal LVEF mild AR, carotid patent vessels, DVT study negative in the LEV.However, she has venous insufficiency involving the popliteal. Mari Murphy MD [id number],C, H er updated medication list for this problem includes: Atorvastatin 40 Mg Tablet (Atorvastatin) ..... 1 tablet by mouth once a day Mari Murphy MD [id number],B,down to 5 cig arettes a week Mari Murphy MD [id number],C, B P today: 136/83 P rior BP: 141/83 (05/04/2022) Labs Reviewed: C reat: 0.85 (05/12/2022) C hol: 181 (05/12/2022) HDL: 53 (05/12/2022) Her updated medication list for this problem includes: Aspirin 81 Mg Tablet,delayed Release (dr/ec) (Aspirin) ..... Take 1 tablet by mouth every day Metoprolol Tartrate 25 Mg Tablet (Metoprolol tartrate) ..... Take 1/2 tablet by mouth twice daily Mari Murphy MD [id number],C, [age]-year-old female presents here with an inferior wall ST-elevation myocardial infarction was t ransferred here from [facility] where there quality control lab technician is closed for r evascularization. Remains on ASA/plavix Paragould catheter thrombectomy 3 . PTCA stenting of high-grade 100% ENRIQUE 0 flow thrombotic stenosis of the mid left circumflex reduced to 0% r esidual with implantation with 3.5 x 33mm Xience drug-eluting stent May 04, 2022 c ontinues on plavix and xarelto at present August 04, 2022 w ith bleeding risk, she needs low dose antiplatelt therpay with 81 of aspirin. Stop plavix and she is on xarelto Mari Murphy MD [id number],S, O n xarelto 20 mg for PE, started at [facility]. check DVT study. S ister also had PE, Rordered xapabloto [facility] ou prefe for her to be seen by a combat systems engineer since she had a sister who had a PE Mari Murphy MD [id number],C, [age]-year-old female presents here with an inferior wall ST-elevation myocardial infarction was t ransferred here from [facility] where there quality control lab technician is closed for r evascularization. Remains on ASA/plavix Paragould catheter thrombectomy 3 . PTCA stenting of high-grade 100% ENRIQUE 0 flow thrombotic stenosis of the mid left circumflex reduced to 0% r esidual with implantation with 3.5 x 33mm Xience drug-eluting stent May 04, 2022 c ontinues on plavix and xarelto at present Mari Murphy MD [id number],S, 2 -3 cigarettes a day Mari Murphy MD [id number],C,O n xarelto 20 mg for PE, started at [facility]. check DVT study. Tiesha no also had PE, Mari Murphy MD [id number],S,Likely due to PE, check PFTS Mari Murphy MD Cardiology:check ech o M ild on echo 05/13/2022 Mari Murphy MD Cardiology: E cho normal LVEF mild AR, carotid patent vessels, DVT study negative in the LEV.However, she has venous insufficiency involving the popliteal. Mari Murphy MD Cardiology: T he Patient was reencouraged to stop smoking. Mari Murphy MD Cardiology: H er updated medication list for this problem includes: Atorvastatin 40 Mg Tablet (Atorvastatin) ..... Take 1 tablet by mouth at bedtime Mari Murphy MD Cardiology: O n xarelto 20 mg for PE, started at [facility]. check DVT study. Tiesha no also had PE, Rordered ariana [facility] prefe for her to be seen by a combat systems engineer since she had a sister who had a PE April 22, 2023 B ack on Xarelto November 17, 2023 O n xarelto, no bleeding issues, saw combat systems engineer, lifetime AC due to family member having PE and dying Mari Murphy MD Cardiology: [age]-year-old female presents here with an inferior wall ST-elevation myocardial infarction was t ransferred here from [facility] where there quality control lab technician is closed for r evascularization. Remains on ASA/plavix Paragould catheter thrombectomy 3 . PTCA stenting of high-grade 100% ENRIQUE 0 flow thrombotic stenosis of the mid left circumflex reduced to 0% r esidual with implantation with 3.5 x 33mm Xience drug-eluting stent May 04, 2022 c ontinues on plavix and xarelto at present August 04, 2022 w ith bleeding risk, she needs low dose antiplatelt therpay with 81 of aspirin. Stop plavix and she is on masonrelmiguelito Murphy MD Cardiology:The Patie nt was reencouraged to stop smoking. Mari Murphy MD Cardiology: [age]-year-old female presents here with an inferior wall ST-elevation myocardial infarction was t ransferred here from [facility] where there quality control lab technician is closed for r evascularization. Remains on ASA/plavix Paragould catheter thrombectomy 3 . PTCA stenting of high-grade 100% ENRIQUE 0 flow thrombotic stenosis of the mid left circumflex reduced to 0% r esidual with implantation with 3.5 x 33mm Xience drug-eluting stent May 04, 2022 c ontinues on plavix and xarelto at present August 04, 2022 w ith bleeding risk, she needs low dose antiplatelt therpay with 81 of aspirin. Stop plavix and she is on masonrelmiguelito Murphy MD Cardiology: O n xarelto 20 mg for PE, started at [facility]. check DVT study. Tiesha no also had PE, Rordered xarellto W ould prefe for her to be seen by a combat systems engineer since she had a sister who had a PE April 22, 2023 B ack on Chapincito Murphy MD Cardiology: H er updated medication list for this problem includes: Furosemide 20 Mg Tablet (Furosemide) Aspirin 81 Mg Tablet,delayed Release (dr/ec) (Aspirin) ..... Take 1 tablet by mouth every day Metoprolol Tartrate 25 Mg Tablet (Metoprolol tartrate) ..... Take 1/2 tablet by mouth twice daily BP today: 125/78 P rior BP: 114/86 (01/21/2023) Labs Reviewed: C reat: 0.85 (05/12/2022) C hol: 181 (05/12/2022) HDL: 53 (05/12/2022) Mari Murphy MD Cardiology:[employer]. does no t want patch Mari Murphy MD Cardiology: O n xarelto 20 mg for PE, started at [facility]. check DVT study. Tiesha no also had PE, Rordered ariana [facility] for her to be seen by a combat systems engineer since she had a sister who had a PE Mari Murphy MD Cardiology: [age]-year-old female presents here with an inferior wall ST-elevation myocardial infarction was t ransferred here from [facility] where there quality control lab technician is closed for r evascularization. Remains on ASA/plavix Paragould catheter thrombectomy 3 . PTCA stenting of high-grade 100% ENRIQUE 0 flow thrombotic stenosis of the mid left circumflex reduced to 0% r esidual with implantation with 3.5 x 33mm Xience drug-eluting stent May 04, 2022 c ontinues on plavix and xarelto at present August 04, 2022 w ith bleeding risk, she needs low dose antiplatelt therpay with 81 of aspirin. Stop plavix and she is on xarelto Mari Murphy MD Cardiology: H er updated medication list for this problem includes: Atorvastatin 40 Mg Tablet (Atorvastatin) ..... Take 1 tablet by mouth once a day Mari Murphy MD Cardiology: H er updated medication list for this problem includes: Aspirin 81 Mg Tablet,delayed Release (dr/ec) (Aspirin) ..... Take 1 tablet by mouth every day Metoprolol Tartrate 25 Mg Tablet (Metoprolol tartrate) ..... Take 1/2 tablet by mouth twice daily BP today: 114/86 P rior BP: 136/83 (08/04/2022) Labs Reviewed: C reat: 0.85 (05/12/2022) C hol: 181 (05/12/2022) HDL: 53 (05/12/2022) Mari Murphy MD Cardiology:stopped smokign down to 2 cig a week Mari Murphy MD Cardiology:Echo norm al LVEF mild AR, carotid patent vessels, DVT study negative in the LEV.However, she has venous insufficiency involving the popliteal. Mari Murphy MD Cardiology: H er updated medication list for this problem includes: Atorvastatin 40 Mg Tablet (Atorvastatin) ..... 1 tablet by mouth once a day Mari Murphy MD Cardiology:down to 5 cigarettes a week Mari Murphy MD Cardiology: B P today: 136/83 P rior BP: 141/83 (05/04/2022) Labs Reviewed: C reat: 0.85 (05/12/2022) C hol: 181 (05/12/2022) HDL: 53 (05/12/2022) Her updated medication list for this problem includes: Aspirin 81 Mg Tablet,delayed Release (dr/ec) (Aspirin) ..... Take 1 tablet by mouth every day Metoprolol Tartrate 25 Mg Tablet (Metoprolol tartrate) ..... Take 1/2 tablet by mouth twice daily Mari Murphy MD Cardiology: [age]-year-old female presents here with an inferior wall ST-elevation myocardial infarction was t ransferred here from [facility] where there quality control lab technician is closed for r evascularization. Remains on ASA/plavix Paragould catheter thrombectomy 3 . PTCA stenting of high-grade 100% ENRIQUE 0 flow thrombotic stenosis of the mid left circumflex reduced to 0% r esidual with implantation with 3.5 x 33mm Xience drug-eluting stent May 04, 2022 c ontinues on plavix and xarelto at present August 04, 2022 w ith bleeding risk, she needs low dose antiplatelt therpay with 81 of aspirin. Stop plavix and she is on xarelto Mari Murphy MD Cardiology: O n xarelto 20 mg for PE, started at [facility]. check DVT study. Tiesha no also had PE, Rordered xarellto W ould prefe for her to be seen by a combat systems engineer since she had a sister who had a PE Mari Murphy MD Cardiology: [age]-year-old female presents here with an inferior wall ST-elevation myocardial infarction was t ransferred here from [facility] Room where there quality control lab technician is closed for r evascularization. Remains on ASA/plavix Paragould catheter thrombectomy 3 . PTCA stenting of high-grade 100% ENRIQUE 0 flow thrombotic stenosis of the mid left circumflex reduced to 0% r esidual with implantation with 3.5 x 33mm Xience drug-eluting stent May 04, 2022 c ontinues on plavix and xarelto at present Mari Murphy MD Cardiology: 2 -3 cigarettes a day Mari Murphy MD Cardiology:On xarelt o 20 mg for PE, started at [facility]. check DVT study. Tiesha no also had PE, Mari Murphy MD Cardiology:Likely due to PE, kiki ck PFTS Mari Murphy MD Cardiology followup :check labs Mari Murphy MD Cardiology followup :2-3 cigaret gen a day Mari Murphy MD Cardiology followup :54-year-old female presents here with an inferior wall ST-elevation myocardial infarction was t ransferred here from [facility] where there quality control lab technician is closed for r evascularization. Remains on ASA/plavix \ \ E xport catheter thrombectomy 3 . PTCA stenting of high-grade 100% ENRIQUE 0 flow thrombotic stenosis of the mid left circumflex reduced to 0% r esidual with implantation with 3.5 x 33mm Xience drug-eluting stent Mari Murphy MD Cardiology followup : C ontinues on Atorvastatin. Will check a lipid panel today. We aim for LDL less than 70. C HOL: 194 (02/21/2020) HDL: 61 (02/21/2020) Mari Murphy MD Cardiology follow up :STRONGLY ENCOURAGED TO STOP SMOKING; SMOKING CESSATION TECHNIQUES DISCUSSED. Louise Casey MD Cardiology follow up :A1c 6.0%. Will repeat A1c. Louise Casey MD Cardiology follow up :Continues on Atorvastatin. Will check a lipid panel today. We aim for LDL less than 70. Louise Casey MD Cardiology follow up :Chest pain free. Effort tolerance stable. She continues on Aspirin and Plavix. Louise Casey MD Cardiology hospital follow up :Continues on atorvastatin. Louise Casey MD Cardiology hospital follow up :Asymptomatic. s/p FUNMI to the L circumflex. Continue ASA/Plavix. oLuise Casey MD Cardiology hospital follow up :The Patient was reencouraged to stop smoking. Louise Casey MD Date Name Venous Doppler Bilat eral LE Complete Echo HEMOGLOBIN A1c Lipoprotein (a) LIPID PANEL COMPREHENSIVE METABO LIC PANEL, W/EGFR HEMOGLOBIN A1c Lipoprotein (a) LIPID PANEL COMPREHENSIVE METABO LIC PANEL, W/EGFR PROTHROMBIN GENE ROBLES LYSIS Protein S-Functional Protein C-Functional Factor V Activity D-DIMER, QUANTITATIV E Antithrombin Activit y Anticardiolipin Ab, IgG/M, Qn LIPID PANEL COMPREHENSIVE METABO LIC PANEL, W/EGFR Carotid Duplex Bilat eral Complete Echo Venous Doppler Bilat eral LE DLCO - 42769 FRC - 07216 FVC - 20685 Venous Doppler Bilat eral LE - Reflux HEMOGLOBIN A1c LIPID PANEL COMPREHENSIVE METABO LIC PANEL, W/EGFR Carotid Duplex Bilat eral Complete Echo CBC (H/H, RBC, INDIC ES, WBC, PLT) LIPID PANEL HEMOGLOBIN A1c COMPREHENSIVE METABO LIC PANEL, W/EGFR HISTORY OF PROCEDURES Procedure Date Procedure Name Provider Procedure Notes S tatus EKG Mari Mruphy MD compl eted EKG Mari Murphy MD compl eted EKG Mari Murphy MD compl eted Spirometry Mari Murphy MD compl eted FVC / MVV - 52881 Mari Murphy MD completed FRC - 34070 Mari Murphy MD comp leted SpO2 w/o 6min walk/titration Mari Murphy MD completed SVC - 07059 Mari Murphy MD comp leted DLCO - 52397 Mari Murphy MD com pleted EKG Mari Murphy MD compl eted EKG Mari Murphy MD compl eted EKG Mari Murphy MD compl eted EKG Louise Casey MD complet ed EKG Louise Casey MD complet ed
--- OUTSIDE RECORDS SUMMARY | 2024-10-18 11:30 | XMS_ITS | Continuity of Care Document ---
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 Role Phone Levar Rodriguez MD Unavailable Unavailable Allergies, Adverse Reactions, Alerts Substance Reaction Status Criticality Sulfa (Sulfonamide Antibiotics) GI ProblemsStomach PainNausea / Vomiting Active No Information niacin Hives / Skin RashBlister Active No Information Medications Medication Instructions Dosage Effective Dates (start - stop) Status Comments Crestor 20 mg tablet take 1 tablet by or al route every day 20 MG - Active Lasix 20 mg tablet take 1 tablet by ora l route every day 20 MG - Active metoprolol tartrate 25 mg tablet take 0.5 tablet by oral route 2 times every day 12.5 MG - Active Xarelto 20 mg tablet take 1 tablet by or al route every day with the evening meal 20 MG - Active Procedures Procedure Date OFFICE/OUTPATIENT VISIT, EST PREV VISIT, NEW, AGE 40-64 Advance Directives Directive Yes / No Effective Date File Name No Information Encounters Encounter Description Practice Location Reason(s) For Visit Diagnoses Date Provider Providers Copied on Encounter OFFICE/OUTPA TIENT VISIT, EST [facility], [address] [place], [id number], [place] tel:[phone] [facility] folate1 (chief complaint) LFT (chief complaint) HLp (chief complaint) edema1 (chief complaint) Folate deficiencyOsteopeni aMixed hyperlipidemiaOther disorder of phosphorus metabolismLiver diseaseEdema Oct- 5 Michael Cristobal. [address] [place], [place], [id number] , . [phone] PREV VISIT, NEW, AGE 40-64 [facility], [address] [place], [place], [id number], tel:[phone] [facility] physical (chief complaint) Encounter for general adult medical examination without abnormal findings 5 Michael Cristobal. [address] [place], [place], [id number] , [place]. tel:[phone] Family History Family Member Type Diagnosis Age At Onset Mother Problem Hypertension Father Problem of sepsis 66 Father Problem CAD Father Problem Diabetes mellitus Sister Problem of blood clot Payers Payer name Insurance type Covered democrat ID Roberto mayberry(s) [facility] [id number] Social History Type Description Quantity Date Captured Comments Alcohol Use Details Caffeine Use Details Unknown Tobacco Use Status Light cigarette smok er (1-9 cigs/day) Smoking Status Light tobacco smoker Sex Female Vital Signs Date / Time: Height Weight BMI Pulse Rate Blood Pressure Temperature Respiratory Rate Body Surface Area Head Circumference BMI percentile Pulse Ox Inhaled Ox 12:17 PM 67.00 in 188.20 lbs 29.4 8 kg/m eter (2) 81 /min 130/80 mm[Hg] 98.0 F 16 /min Chief Complaint And Reason For Visit From encounter dated '10/17/2024 11:37'. folate1 (chief complaint). Description: pt has low folate Pt has low D. Pt has bone density scheduled soon Pt has borderline high phos LFT (chief complaint). Description: Pt has mildly high LFT Pt denies any abd pain or jaundice pt rarely drinks alcohol HLp (chief complaint). Description: pt has HLP. Pt is on lipitor. Her lipid profile is still high Pt has CAD with stent Pt denies any chest pain. edema1 (chief complaint). Description: Pt has LE edema and doing much better with lasix. Plan Of Treatment Date Type Action Status Referral Ordered: MAMMOGRAM, SCREENING ordered Referral Ordered: DXA BONE DENSITY, AXIAL ordered Referral Ordered: COLONOSCOPY AND BIOPSY ordered Appointment Galileo Oakes BOOKED History Of Present Illness Encounter Date Complaint History Of Prese nt Illness folate1 pt has low folat e Pt has low D. Pt has bone density scheduled soon Pt has borderline high phos LFT Pt has mildly hi gh LFT Pt denies any abd pain or jaundice pt rarely drinks alcohol HLp pt has HLP. Pt i s on lipitor. Her lipid profile is still high Pt has CAD with stent Pt denies any chest pain. edema1 Pt has LE edema and doing much better with lasix. physical Pt needs annual physical. Pt has history of CAD with stent and she sees cardiology and she is on metoprolol and lipitor and lasix. Pt does have dependent edema Pt also has history of PE and she is on xarelto chronically by cardiology Pt has chronic constipation Pt had colonoscopy done 3 years ago which showed tubular adenoma. Pt states that she has BM every 3-4 days with very hard stool. Pt denies any blood in stool Pt denies any other complaints Instructions Date Instruction Additional Infor mation No Information Assessments Type Assessment Date assessment Folate deficiency assessment Osteopenia assessment Mixed hyperlipidemia assessment Other disorder of phosphorus met abolism assessment Liver disease assessment Edema Mental Status Date Cognitive Assessment Orientation - [place] ed to time, place, person, situation.
== END 2024-10-18 10:43 | disposition home or self-care (01) ==
PROVIDERS: PCP Emergency Medicine; Visit Provider Emergency Medicine
DX: Z78.0 Asymptomatic menopausal state (principal)
CPT/HCPCS: 77080

== ENCOUNTER 2025-03-14 06:56 | Outpatient (CLI) | payer OTHER, SELFPAY ==
--- NOTE | ~2025-03-14 | MM_ITS ---
EXAMINATION: MM screening dilma BI w claribel HISTORY: Screening TECHNIQUE: Craniocaudal and mediolateral oblique 3-D tomosynthesis images were obtained and synthetic 2-D images were generated. CAD analysis was submitted and interpreted. COMPARISON: None provided BREAST PARENCHYMAL COMPOSITION: There are scattered areas of fibroglandular density. FINDINGS: There is no evidence of suspicious mass, calcification, or architectural distortion to suggest malignancy in either breast. IMPRESSION: 1. No mammographic evidence of malignancy. 2. Recommend routine screening mammography in one year. BI-RADS Category 1: Negative Reviewed, dictated and finalized at location B.
== END 2025-03-14 06:57 | disposition home or self-care (01) ==
LOC: ANHFOHIMG 06:59
PROVIDERS: PCP Emergency Medicine; Visit Provider Emergency Medicine
DX: Z12.31 Encounter for screening mammogram for malignant neoplasm of breast (principal)
CPT/HCPCS: 77063; 77067